=== PATIENT | female | born 1990 | race Caucasian/White ===

== ENCOUNTER 2018-12-20 07:50 | Emergency (ER) | payer OTHER ==
[2018-12-20 08:00] VITALS: RESP 18
[2018-12-20] MEDS ORDERED: Alum-Mag Hydrox-Simethicone Susp (30 mL) PO STA (08:17)
--- NOTE | 2018-12-20 08:20 | ED PDOC ---
Arrival/HPI - General Chief Complaint: Chest Pain Time Seen by Provider: 12/20/18 08:08 Historian: Patient - History of Present Illness Narrative History of Present Illness (Text): 12/20/18 08:17 A 28 year old female, 24 weeks , presents to the emergency department with a complaint of chest tightness and mild shortness of breath this morning. The patient notes that she was awake and laying in bed at the time she felt the discomfort. She describes the discomforts as a heaviness in her chest. The patient notes that she is not on any hormone treatments, denies injury, trauma, fevers, chills, headache, dizziness, dyspnea on exertion, cough, abdominal pain, nausea, vomiting, diarrhea, back pain, neck pain, urinary/bowel changes, or any other complaint. PMD: Dr. Shaw Time/Duration: Other (2 AM) Symptom Onset: Sudden Symptom Course: Unchanged Activities at Onset: Rest, Light Context: Home Past Medical History - Provider Review Nursing Documentation Reviewed: Yes - Psychiatric Hx Substance Use: No Family/Social History - Physician Review Nursing Documentation Reviewed: Yes Family/Social History: No Known Family HX Smoking Status: Never Smoked Hx Alcohol Use: No Hx Substance Use: No Allergies/Home Meds Allergies/Adverse Reactions: Allergies No Known Allergies Allergy (Verified 12/20/18 11:52) Home Medications: Home Meds Medication Instructions Recorded Confirmed Pnv No.95/Ferrous Fum/Folic AC 1 tab PO DAILY 12/20/18 12/20/18 [ [place]] Review of Systems - Physician Review All systems were reviewed & negative as marked: Yes - Review of Systems Gastrointestinal: absent: Abdominal Pain Musculoskeletal: absent: Back Pain Physical Exam - Physical Exam Narrative Physical Exam (Text): Constitutional: No acute distress. Head: Normocephalic. Atraumatic. Eyes: PERRL. ENT: Moist mucous membranes. Neck: Supple. Cardiovascular: Regular rate. Chest: No tenderness. Respiratory: Clear to auscultation bilaterally. GI: Soft. Nontender. Nondistended. Back: No CVA tenderness. Musculoskeletal: No tenderness or swelling of extremities. Skin: No rash. Neurologic: Alert, no focal deficit. Vital Signs Reviewed: Yes Vital Signs Temp Pulse Resp BP Pulse Ox 12/20/18 07:58 97.8 F 85 18 125/69 97 Temperature: Afebrile Blood Pressure: Normal Pulse: Regular Respiratory Rate: Normal Appearance: Positive for: Well-Appearing, Non-Toxic, Comfortable Pain Distress: None Mental Status: Positive for: Alert and Oriented X 3 Medical Decision Making ED Course and Treatment: Impression: A 28 year old female presents to the emergency department with a complaint of chest tightness and mild shortness of breath this morning. Plan: -- EKG -- Labs -- Pepcid and Maalox -- Reassess and disposition Progress Notes: EKG shows NSR at 70 BPM. T-wave inversions in v2 and v3. No ST changes. 12/20/18 11:00: Case discussed with Dr. Shaw who accepts patient for cardiac observation. Requests Dr. Madden for cardiology consultation. Aspirin not administered secondary to , informed of benefits for CAD and risks for , patient did not wish to take ASA. - Lab Interpretations I have reviewed the lab results: Yes - EKG Interpretation Interpreted by ED Physician: Yes Type: 12 lead EKG - Scribe Statement The provider has reviewed the documentation as recorded by the Scribe Cori Woodard Provider Scribe Attestation: All medical record entries made by the Scribe were at my direction and personally dictated by me. I have reviewed the chart and agree that the record accurately reflects my personal performance of the history, physical exam, medical decision making, and the department course for this patient. I have also personally directed, reviewed, and agree with the discharge instructions and disposition. Disposition/Present on Arrival - Present on Arrival Any Indicators Present on Arrival: No History of DVT/PE: No History of Uncontrolled Diabetes: No Urinary Catheter: No History of Decub. Ulcer: No History Surgical Site Infection Following: None - Disposition Have Diagnosis and Disposition been Completed?: Yes Diagnosis: Chest pain Disposition: HOSPITALIZED Disposition Time: 10:45 Patient Plan: Observation Condition: FAIR
[2018-12-20 08:47] LABS: BASO # 0.01 K/mm3 (0.0-2.0); BASO % 0.1 % (0.0-3.0); EOS # 0.1 (0.0-0.7); EOS % 0.6 % (1.5-5.0); HEMOGLOBIN 11.3 g/dL (12.0-16.0); LYMPH # 1.5 (1.2-3.4); LYMPH % 12.8 % (22.0-35.0); MEAN CELL VOLUME 89.1 fl (80.0-105.0); MEAN CORPUSCULAR HEMOGLOBIN 29.3 pg (25.0-35.0); MEAN CORPUSCULAR HGB CONC 32.8 g/dl (31.0-37.0); MEAN PLATELET VOLUME 9.9 fl (7.0-11.0); MONO % 8.7 % (1.0-6.0); RBC 3.86 10^6/uL (3.5-6.1); RED CELL DISTRIBUTION WIDTH 13.8 % (11.5-14.5); WHITE BLOOD COUNT 11.8 10^3/uL (4.5-11.0)
[2018-12-20 08:58] LABS: ALBUMIN 3.4 g/dL (3.0-4.8); ALT/SGPT 9 U/L (7-56); AST/SGOT 21 U/L (14-36); BLOOD UREA NITROGEN 6 mg/dL (7-21); CALCIUM 8.2 mg/dL (8.4-10.5); GFR NON-AFRICAN AMERICAN > 60; LIPASE 67 U/L (23-300)
[2018-12-20 09:09] LABS: TROPONIN I < 0.01 ng/mL
--- NOTE | 2018-12-20 11:46 | CARD ---
APPROVED REPORT Date of service: 12/20/2018 EKG Measurement Heart [id number] ID [id number] <Conclusion> Normal sinus rhythm Persistent juvenile T wave pattern Borderline ECG
[2018-12-20 13:44] VITALS: BMI 29.0
[2018-12-20 15:43] VITALS: PULSE 78
[2018-12-20 16:27] VITALS: BP 107/70; TEMP 98.2; O2SAT 99
--- NOTE | 2018-12-20 22:00 | CON ---
DATE: 12/20/2018 HOSPITAL COURSE: I went to see the patient, admitted for chest pain, but found the patient to be . Troponin 2 sets were negative. Patient was discharged home. So, I did not see the patient. Memo Madden MD
== END 2018-12-20 16:25 | disposition home or self-care (01) ==
LOC: ED 07:50 → UNDOADMOB 11:01 → ERH 11:01 → ED 16:25
DX: O26.892 Other specified pregnancy related conditions, second trimester (principal); Z3A.24 24 weeks gestation of pregnancy; R07.9 Chest pain, unspecified